=== PATIENT | female | born 1975 | race Caucasian/White ===

== ENCOUNTER 2016-06-19 05:54 | Emergency (ER) | payer OTHER ==
[2016-06-19] MEDS ORDERED: ONDANSETRON 4 MG/2ML 2 ML VIAL ONE (06:16)
[2016-06-19] MEDS ORDERED: LACTATED RINGERS 1,000 ML ONE (06:17)
[2016-06-19] MEDS ORDERED: LORAZEPAM 2 MG/ML 1ML SDV ONE ×2 (06:17→07:23)
[2016-06-19 06:39] LABS: ABSOLUTE NEUTROPHIL COUNT 2.4 K/mm3 (1.8-7.7); BASO # 0.1 K/mm3 (0.0-0.2); BASO % 1.3 % (0.2-1.0); EOS % 0.2 % (0.9-2.9); HEMATOCRIT 40.6 % (37.0-47.0); HEMOGLOBIN 13.7 gm/l (12.0-16.0); IMM NEUT% 0.2 % (0-1); LYMPH # 1.4 (1.0-4.8); LYMPH % 31.6 % (15-45); MEAN CELL VOLUME 93.1 fl (81.0-99.0); MEAN CORPUSCULAR HEMOGLOBIN 31.4 pg (27.0-31.0); MEAN CORPUSCULAR HGB CONC 33.7 g/dl (33.0-37.0); MEAN PLATELET VOLUME 8.4 fl (7.4-10.4); MONO # 0.6 (0.0-0.8); NEUT % 52.7 % (43-75); PLATELET COUNT 187 K/mm3 (130-400); RED CELL DISTRIBUTION WIDTH 12.7 % (11.5-14.5)
[2016-06-19 07:01] LABS: ALB/GLOB RATIO 1.4 (>1.0); ALBUMIN 4.2 gm/dL (3.5-5.7); CALCIUM 8.9 mg/dL (8.6-10.3); MAGNESIUM 2.1 mg/dL (1.9-2.7)
[2016-06-19] MEDS ORDERED: LORAZEPAM 1 MG TABLET ONE ×4 (08:46→16:24)
[2016-06-19 09:16] LABS: PH,URINE 6.5 (5.0-8.0); URINE BILIRUBIN NEGATIVE (NEGATIVE); URINE BLOOD NEGATIVE (NEGATIVE); URINE GLUCOSE (UA) NEGATIVE (NEGATIVE); URINE LEUKOCYTE ESTERASE NEGATIVE (NEGATIVE); URINE NITRITE NEGATIVE (NEGATIVE); URINE PROTEIN NEGATIVE (NEGATIVE); URINE UROBILINOGEN NORMAL (0-1 mg/dl)
[2016-06-19 09:20] LABS: URINE APPEARANCE CLEAR; URINE COLOR YELLOW
[2016-06-19 09:34] LABS: HCG,QUALITATIVE URINE NEGATIVE
[2016-06-19 11:53] LABS: AMPHETAMINES/METHAMPHETAMINES NEGATIVE (NEGATIVE); COCAINE NEGATIVE (NEGATIVE); MARIJUANA NEGATIVE (NEGATIVE); METHADONE NEGATIVE (NEGATIVE); OPIATES NEGATIVE (NEGATIVE); TRICYCLIC ANTIDEPRESSANTS NEGATIVE (NEGATIVE)
[2016-06-19] MEDS ORDERED: ACETAMINOPHEN 325 MG TABLET ONE (14:22)
== END 2016-06-19 18:03 | disposition short-term general hospital (02) ==
LOC: ED 05:54
DX: F10.239 Alcohol dependence with withdrawal, unspecified (principal); R11.10 Vomiting, unspecified; R00.0 Tachycardia, unspecified; Z87.891 Personal history of nicotine dependence
CPT/HCPCS: 83690; 81025; 85025; 80305; 80053; 83735; 81003; 96375; 96376; 99285 ×2; 96374; 96361; 93005; A9270 ×5; J2060 ×2; J2405; J7120